=== PATIENT | female | born 1955 | race Caucasian/White ===

== ENCOUNTER 2018-01-20 10:07 | Inpatient (IN) ==
[2018-01-20] MEDS ORDERED: LIDOCAINE 1% 20 ML VIAL SQ ONE (10:08)
[2018-01-20] MEDS ORDERED: IOPAMIDOL 100 ML BOTTLE IV ONE (10:08)
[2018-01-20] MEDS: METOPROLOL TARTRATE 5 MG/5 ML VIAL IV SCH ×3 (10:43→11:15)
--- NOTE | 2018-01-20 11:33 | XRay Report ---
HISTORY: ITS.REASON: Chest Pain and atrial fibrillation FINDINGS: There is moderate pleural and parenchymal scarring in the mid and lower thorax and left side following a prior thoracotomy. This was seen on recent chest CT done on 12/12/17. There are moderate generalized increased interstitial lung markings bilaterally which have developed heart is partially obscured by the scar tissue in the left thorax but does not appear to be grossly enlarged. There are small bilateral pleural effusions. IMPRESSION: New onset generalized interstitial lung disease. This could be due to congestive heart failure or a widespread inflammatory process such as pneumonia. Stable pleural parenchymal scarring in the left chest following prior thoracotomy Interpreted and Authenticated by: Dale Skaggs 01/20/18
[2018-01-20] MEDS ORDERED: DILTIAZEM 25 MG/5 ML VIAL IV ONE (11:35)
[2018-01-20] MEDS ORDERED: DILTIAZEM 125 MG in DEXTROSE 5% IN WATER 100 ML IV ONE (11:36)
[2018-01-20 14:21] LABS: Basophils # (Auto) 0 K/mcL (0.0-0.3); Basophils % (Auto) 0.5 % (0.0-2.0); Eosinophils # (Auto) 0 K/mcL (0.0-0.7); Eosinophils % (Auto) 0.8 % (0.0-7.0); Granulocytes % (Auto) 66.4 % (38.0-78.0); Lymphocytes # (Auto) 1.1 K/mcL (1.5-4.8); Lymphocytes % (Auto) 20.3 % (15.5-49.0); Mean Cell Volume 93.5 fL (80.0-100.0); Mean Corpuscular HGB Conc 33.6 g/dL (31.0-36.0); Mean Corpuscular Hemoglobin 31.4 pg (26.0-34.0); Monocytes # (Auto) 0.7 K/mcL (0.1-0.9); Platelet Count 206 K/mcL (140-440); RBC 4.53 M/mcL (4.00-5.20); Red Cell Distribution Width 15.3 % (11.5-14.5)
[2018-01-20 14:24] LABS: ALT/SGPT 69 U/l (0-40); Albumin 4.1 gm/dL (3.2-5.2); Albumin/Globulin Ratio 1.6 (1.0-2.3); Alkaline Phosphatase 92 U/L (39-117); Blood Urea Nitrogen 10 mg/dl (8-23); Creatine Kinase 120 IU/L (24-170); Creatine Kinase MB 2.7 ng/ml (0-2.9); Myoglobin 43 ng/ml (25-58)
--- NOTE | 2018-01-20 14:40 | Cat Scan Report ---
CLINICAL INFORMATION: : elevated D-dimer, new a fib with RVR, cough , prior history of [sarcoma COMPARISON: 12/12/17 TECHNIQUE: Axial images obtained through the chest. intravenous contrast administration was administered, and scanning was performed during pulmonary arterial phase. Sagittally and coronally reformatted images were obtained. MIP reformatted images. Radiation exposure was limited using dose reduction technology FINDINGS: The pulmonary arteries are normal with no intraluminal filling defects. The aorta is normal in caliber with no aneurysm or dissection. There are scattered plaques in the aortic arch. The heart is mildly enlarged. Minimal amount of plaque formation is seen in the proximal left anterior descending coronary artery. There is no pericardial effusion. Patient has had prior left-sided thoracoplasty performed. Several of the left anterior ribs have been removed and there is mesh at the site where the ribs had been resected. There is scarring in the underlying lung parenchyma. A moderate size layering right-sided pleural effusion and there is a very small layering left-sided effusion. Thickening of the intralobular septa is present bilaterally, most apparent in the lung bases. Patient has developed bands of discoid atelectasis in both lower lobes. No suspicious masses seen in either lung. Central airways appear normal. There are no abnormally enlarged lymph nodes in the mediastinum, mabel or axilla. IMPRESSION: New onset pleural effusions, right greater than left with thickening of the interlobular septa. These findings are most consistent with congestive heart failure. There is stable cardiomegaly Postsurgical changes pneumothorax following a prior thoracoplasty Dr. Aquino was called with results Interpreted and Authenticated by: Dale Skaggs 01/20/18
--- NOTE | 2018-01-20 14:53 | Emergency Department Note ---
Arrhythmia/Palpitations HPI - General Chief Complaint: Arrhythmia/Palpitations Stated Complaint: A-fib, sent from . Time Seen by Provider: 01/20/18 10:33 Source: patient Mode of arrival: ambulatory Limitations: no limitations - History of Present Illness HPI Narrative: 62-year-old female comes in for wheezing and cough for the last 3 days. Additionally she notes a history of intermittent palpitations going on for the last year. She is somewhat high risk as she has had sarcoma as well as 2 episodes of breast cancer. Anyways she went to [facility] with a found she was in A. fib with RVR so they sent her to the ER. Denies fever chills nausea vomiting diarrhea. Notes chronic swelling to the left arm secondary to lymph node dissection - Related Data Home Medications Medication Instructions Recorded Confirmed Liothyronine Sodium 5 mcg PO BID 01/20/18 01/20/18 levothyroxine 137 mcg capsule 137 mcg PO QDAY 01/20/18 01/20/18 Allergies Allergy/AdvReac Type Severity Reaction Status Date / Time meperidine [From Demerol] Allergy Intermediate Hives Verified 01/20/18 09:17 Penicillins Allergy Intermediate Hives Verified 01/20/18 09:17 Review of Systems All systems ED: reviewed and negative except as stated. Past Medical History - Past Medical History Attestation: Yes: The following information was validated with the patient. Medical history: Reports: hypothyroidism, other (Celiac) Psychiatric history: Reports: anxiety Surgical history ED: Reports: other (Mastectomy) - Social History smoking status: Former smoker Physical Exam Normocephalic atraumatic. Conjunctive are clear sclerae nonicteric. No nasal discharge or congestion. Oropharynx pink moist. Posterior pharynx clear. Neck is supple without lymphadenopathy thyromegaly. No carotid bruit. Heart is irregularly irregular rhythm, tachycardic. Unable to hear a murmur. Lungs are clear to auscultation bilaterally without wheezes rales rhonchi or respiratory distress. Abdomen soft nontender nondistended. Chest wall shows mastectomy scars. Left arm chronic lymphedema status post lymph node dissection from mastectomy. No pedal edema. +2 radial pulse. Alert oriented able answer questions appropriately. Limitations: no limitations Course Vital Signs Pulse Rate 135 H 01/20/18 10:08 Respiratory Rate 18 01/20/18 10:08 Blood Pressure 125/89 01/20/18 10:08 Pulse Oximetry (%) 95 01/20/18 10:08 Temperature 98.2 F 01/21/18 07:36 Pulse Rate 75 01/21/18 07:36 Respiratory Rate 14 01/21/18 07:36 Blood Pressure 125/82 01/21/18 07:36 Pulse Oximetry (%) 94 01/21/18 06:57 Arrhythmia/Palpitations - Medical Records Medical records reviewed: Yes I reviewed the patient's medical records. - Lab Data Lab results reviewed: Yes I reviewed the patient's lab results. Result diagrams: 01/21/18 04:00 01/21/18 04:00 Lab Results 01/20/18 01/20/18 01/20/18 Range/Units 10:24 10:24 10:24 WBC Cancelled RBC Cancelled Hgb Cancelled Hct Cancelled MCV Cancelled MCH Cancelled MCHC Cancelled RDW Cancelled Plt Count Cancelled MPV Cancelled Gran % Cancelled Lymph % (Auto) Cancelled [place] % (Auto) Cancelled Eos % (Auto) Cancelled Baso % (Auto) Cancelled Gran # Cancelled Lymph # (Auto) Cancelled [place] # (Auto) Cancelled Eos # (Auto) Cancelled Baso # (Auto) Cancelled Differential Comment Cancelled PT (11.9-14.5) sec INR (0.9-1.1) D-Dimer (0.00-0.40) ug/ml Sodium Cancelled Potassium Cancelled Chloride Cancelled Carbon Dioxide Cancelled Anion Gap Cancelled BUN Cancelled Creatinine Cancelled GFR Calculation Cancelled BUN/Creatinine Ratio Cancelled Glucose Cancelled Calcium Cancelled Magnesium (1.6-2.5) mg/dL Total Bilirubin Cancelled AST Cancelled ALT Cancelled Alkaline Phosphatase Cancelled Total Creatine Kinase Cancelled CK-MB (CK-2) Cancelled Myoglobin Cancelled Troponin T Cancelled Total Protein Cancelled Albumin Cancelled Globulin Cancelled Albumin/Globulin Ratio Cancelled TSH (0.27-5.01) uIU/ml Free T4 (0.7-1.7) ng/dl Fluid pH Fluid Total Protein gm/dL Fluid LDH U/L Fluid Cholesterol mg/dL Fluid Triglycerides mg/dL Pleural Fluid Source Pleural Color Pleural Appearance Pleural RBC /cumm Pleural Tot Cell Ct Pleural Nuc Cells /cumm Pleural Neutrophils % Pleural Lymphocytes % Pleural Plasma Cells Pleural Macrophages % Pleural Mesothelial % Pleural Diff Comment Pleural Glucose mg/dL Pleural Amylase U/L 01/20/18 01/20/18 01/20/18 Range/Units 10:24 10:24 10:24 WBC 5.6 RBC 4.53 Hgb 14.2 Hct 42.4 MCV 93.5 MCH 31.4 MCHC 33.6 RDW 15.3 H Plt Count 206 MPV 10.6 H Gran % 66.4 Lymph % (Auto) 20.3 [place] % (Auto) 12.0 Eos % (Auto) 0.8 Baso % (Auto) 0.5 Gran # 3.7 Lymph # (Auto) 1.1 L [place] # (Auto) 0.7 Eos # (Auto) 0 Baso # (Auto) 0 Differential Comment PT (11.9-14.5) sec INR (0.9-1.1) D-Dimer (0.00-0.40) ug/ml Sodium 141 Potassium 4.1 Chloride 105 Carbon Dioxide 23 Anion Gap 13.0 BUN 10 Creatinine 0.7 GFR Calculation 94 BUN/Creatinine Ratio Glucose 125 H Calcium 9.4 Magnesium (1.6-2.5) mg/dL Total Bilirubin 1.1 H AST 54 H ALT 69 H Alkaline Phosphatase 92 Total Creatine Kinase 120 CK-MB (CK-2) 2.7 Myoglobin 43 Troponin T < 0.01 Total Protein 6.7 Albumin 4.1 Globulin 2.6 Albumin/Globulin Ratio 1.6 TSH (0.27-5.01) uIU/ml Free T4 (0.7-1.7) ng/dl Fluid pH Fluid Total Protein gm/dL Fluid LDH U/L Fluid Cholesterol mg/dL Fluid Triglycerides mg/dL Pleural Fluid Source Pleural Color Pleural Appearance Pleural RBC /cumm Pleural Tot Cell Ct Pleural Nuc Cells /cumm Pleural Neutrophils % Pleural Lymphocytes % Pleural Plasma Cells Pleural Macrophages % Pleural Mesothelial % Pleural Diff Comment Pleural Glucose mg/dL Pleural Amylase U/L 01/20/18 01/20/18 01/20/18 Range/Units 10:33 10:34 15:46 WBC RBC Hgb Hct MCV MCH MCHC RDW Plt Count MPV Gran % Lymph % (Auto) [place] % (Auto) Eos % (Auto) Baso % (Auto) Gran # Lymph # (Auto) [place] # (Auto) Eos # (Auto) Baso # (Auto) Differential Comment PT 13.3 (11.9-14.5) sec INR 1.0 (0.9-1.1) D-Dimer 0.79 H (0.00-0.40) ug/ml Sodium Potassium Chloride Carbon Dioxide Anion Gap BUN Creatinine GFR Calculation BUN/Creatinine Ratio Glucose Calcium Magnesium 2.1 (1.6-2.5) mg/dL Total Bilirubin AST ALT Alkaline Phosphatase Total Creatine Kinase CK-MB (CK-2) Myoglobin Troponin T Total Protein Albumin Globulin Albumin/Globulin Ratio TSH 0.71 (0.27-5.01) uIU/ml Free T4 1.41 (0.7-1.7) ng/dl Fluid pH 7.53 Fluid Total Protein gm/dL Fluid LDH U/L Fluid Cholesterol 27 mg/dL Fluid Triglycerides mg/dL Pleural Fluid Source Pleural Pleural Color Yellow Pleural Appearance Hazy Pleural RBC < 00096 /cumm Pleural Tot Cell Ct 100 Pleural Nuc Cells 779 /cumm Pleural Neutrophils 2 % Pleural Lymphocytes 73 % Pleural Plasma Cells Not Reportable Pleural Macrophages 20 % Pleural Mesothelial 5 % Pleural Diff Comment Not Reportable Pleural Glucose 121 mg/dL Pleural Amylase 35 U/L 01/20/18 Range/Units 15:47 WBC RBC Hgb Hct MCV MCH MCHC RDW Plt Count MPV Gran % Lymph % (Auto) [place] % (Auto) Eos % (Auto) Baso % (Auto) Gran # Lymph # (Auto) [place] # (Auto) Eos # (Auto) Baso # (Auto) Differential Comment PT (11.9-14.5) sec INR (0.9-1.1) D-Dimer (0.00-0.40) ug/ml Sodium Potassium Chloride Carbon Dioxide Anion Gap BUN Creatinine GFR Calculation BUN/Creatinine Ratio Glucose Calcium Magnesium (1.6-2.5) mg/dL Total Bilirubin AST ALT Alkaline Phosphatase Total Creatine Kinase CK-MB (CK-2) Myoglobin Troponin T Total Protein Albumin Globulin Albumin/Globulin Ratio TSH (0.27-5.01) uIU/ml Free T4 (0.7-1.7) ng/dl Fluid pH Fluid Total Protein 2.1 gm/dL Fluid LDH 69 U/L Fluid Cholesterol mg/dL Fluid Triglycerides 12 mg/dL Pleural Fluid Source Pleural Color Pleural Appearance Pleural RBC /cumm Pleural Tot Cell Ct Pleural Nuc Cells /cumm Pleural Neutrophils % Pleural Lymphocytes % Pleural Plasma Cells Pleural Macrophages % Pleural Mesothelial % Pleural Diff Comment Pleural Glucose mg/dL Pleural Amylase U/L - Radiology Data Radiology results reviewed: Yes I reviewed the patient's radiology results. Chest x-ray showed interstitial lung disease with scarring versus infiltrate left lower lobe CTA is then ordered of the chest with the following report from Dr. Skaggs: IMPRESSION: New onset pleural effusions, right greater than left with thickening of the interlobular septa. These findings are most consistent with congestive heart failure. There is stable cardiomegaly Postsurgical changes pneumothorax following a prior thoracoplasty Thoracentesis was then done of the pleural effusion-see report of that-they took off 470 mL of fluid - EKG Data EKG attestation: Yes I reviewed and interpreted this EKG. EKG results narrative: EKG initially shows a rate of 134 atrial fibrillation with left ventricular hypertrophy as well as flattening of the T-wave in V5 and V6 A second EKG was done after she spontaneously converted to sinus rhythm after getting on the diltiazem which again showed no flattening of the T waves but otherwise is much improved Disposition Pt seen by WIRE WRAPPING MACHINE OPERATOR/PA only: No Clinical Impression: Atrial fibrillation with rapid ventricular response, Pleural effusion CHF (congestive heart failure) Qualifiers: Heart failure type: unspecified Heart failure chronicity: acute Qualified Code( s): I50.9 - Heart failure, unspecified Summary: We initially tried to treat her A. fib with RVR with metoprolol 3 doses which did not help. Cardizem drip helped her spontaneously convert to sinus rhythm. Workup showed pleural effusion. Because of the pleural effusion and requiring the IV drip did recommend hospital admission. Dr. Herrera agreed to accept patient please see his notes Disposition: Xfer As Inpt ([facility]) Condition: Fair
[2018-01-20 14:58] LABS: Free T4 (Free Thyroxine) 1.41 ng/dl (0.7-1.7)
--- NOTE | 2018-01-20 16:01 | XRay Report ---
HISTORY: : POST THORA FINDINGS: There is no pneumothorax following the preceding right-sided thoracentesis. There is blunting of the right costophrenic sulcus due to a residual tiny pleural effusion. Most of the fluid has been drained and the right lower lobe has partially reexpanded. Multiple curly B lines are present in the periphery of the right lower lobe. Heart is mildly enlarged. There is pleural and parenchymal scarring in the left thorax. There are small left-sided pleural effusion is unchanged. IMPRESSION: No complication following right-sided thoracentesis Congestive heart failure with interstitial pulmonary edema Interpreted and Authenticated by: Dale Skaggs 01/20/18
[2018-01-20] MEDS ORDERED: ONDANSETRON 4 MG/2 ML VIAL IV PRN (16:11)
[2018-01-20] MEDS ORDERED: NALOXONE HCL 0.4 MG/ML VIAL IV PRN (16:11)
[2018-01-20] MEDS ORDERED: ACETAMINOPHEN 325 MG TABLET PO PRN (16:11)
[2018-01-20] MEDS ORDERED: oxyCODONE/APAP 5/325MG TABLET PO PRN (16:11)
--- NOTE | 2018-01-20 16:17 | Ultrasound Report ---
CLINICAL INFORMATION: Right-sided pleural effusion TECHNIQUE: The procedure and risks were explained the patient consented. The skin over the right side of the back was prepped with ChloraPrep and then anesthetized with 1% lidocaine. Using ultrasound guidance a Yueh needle was inserted into the pleural space. 470 cc of brittney-colored fluid was removed and sent to laboratory for analysis. Most all of the visualized fluid was drained. She tolerated the procedure well without complication. IMPRESSION: Successful right-sided thoracentesis removing 470 cc of fluid Interpreted and Authenticated by: Dale Skaggs 01/20/18
[2018-01-20] MEDS ORDERED: FUROSEMIDE 40 MG/4 ML VIAL IV ONE (16:30)
--- NOTE | 2018-01-20 16:33 | Internal Med History&Physical ---
Medical - H&P: HPI Patient information: Note initiated : 01/20/18 at 4:29 pm Service Date, if different from initiated Date: [] Patient: Rabia Godinez a 62 y/o F admitted on 01/20/18 for A-fib, sent from .. Chief Complaint: [] History of present illness: Ms. Godinez is a 62 year old F with history of left-sided breast cancer in the past, status post surgery and radiation. The patient notes that she has not been feeling well for the last 1 year intermittent palpitations which was attributed to anxiety after her mother . The patient has not been feeling well for the last 3-4 days she complains of cough which is wet but no sputum production, wheezing when she lies down flat, decreased endurance some chills palpitations fatigue. The patient was concerned that she has a pneumonia and try to establish with a new physician however that was taking time she therefore [facility]. In the [facility] it was noted that she has an elevated heart rate and she was sent to the emergency room for further evaluation. In the emergency room here the patient was noted to have tachycardia, EKG showed atrial fibrillation with rapid ventricular rate, chest x-ray showed congestive heart failure. Patient's lab work showed normal WBC count and hemoglobin, normal INR at 1.0 mildly elevated d-dimer at 0.79 TSH 0.71. Left lites were stable glucose 125 troponin was 0.01. Patient was initially given IV metoprolol with no response and later on started on a Cardizem drip which converted the patient back to sinus. Chest x-ray showed effusion on the left side CT angios of the chest was done negative for pulmonary embolism no pneumonia but did show right-sided pleural effusion. The patient underwent thoracocentesis by radiology results of which are pending. Given that the patient is on a Cardizem drip, has new onset congestive heart failure as well as atrial fibrillation which may or may not be new she was admitted to the telemetry floor for further management. The patient notes that she was fairly active in the past, exercising regularly until August when she moved to the [place], she did notice that her endurance was lower now after she moved here. The patient denies any chest pain, has intermittent palpitations, denies any swelling of the legs. 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 Surgical history: virgen mastectomy Pertinent family history: adopted Social history: smoked 3-4 yrs when was 20yrs 1-2 glasses wine a week uses CBD for cancer? no recreational drugs. Medical - H&P: Meds Home Medications Medication Instructions Recorded Confirmed Type levothyroxine 137 mcg capsule 137 mcg PO QDAY 01/20/18 01/20/18 History Allergies Allergy/AdvReac Type Severity Reaction Status Date / Time meperidine [From Demerol] Allergy Intermediate Hives Verified 01/20/18 09:17 Penicillins Allergy Intermediate Hives Verified 01/20/18 09:17 Medical - H&P: Exam - Constitutional Vitals: Pulse Resp BP Pulse Ox 77 21 108/77 93 01/20/18 14:46 01/20/18 14:46 01/20/18 14:46 01/20/18 14:46 Exam: GENERAL: The patient is a well-developed, well-nourished in no apparent distress. Is alert and oriented x3. VITAL SIGNS: Reviewed and as noted elsewhere. HEENT: Head is normocephalic and atraumatic. Extraocular muscles are intact. Pupils are equal, round, and reactive to light. Nares appeared normal. Mouth appears any without lesions. Mucous membranes are moist. NECK: Normal to inspection, Supple, No lymphadenopathy or thyromegaly. LUNGS: Air entry equal on both sides, no wheezing, bibasilar crackles, rt > left , spekaing full sentences. HEART: Regular rate and rhythm normal, S1 and S2 heard, no Gallop, S3 or Rub Noted, No Gross murmur heard. ABDOMEN: Soft, nontender, and nondistended. Positive bowel sounds. No hepatosplenomegaly was noted. EXTREMITIES: No cyanosis, clubbing, rash, lesions or edema. NEUROLOGIC: Cranial nerves II through XII are grossly intact. Motor and Sensory System Grossly Intact PSYCHIATRIC: Normal affect, Normal Mood. Appropriate Behavior. SKIN: No ulceration or wounds noted, No jaundice, No rash noted. Medical - H&P: Reslt - Labs CBC & Chem 7: 01/20/18 10:24 01/20/18 10:24 Labs: Short CBC 01/20/18 01/20/18 Range/Units 10:24 10:24 WBC Cancelled 5.6 Hgb Cancelled 14.2 Hct Cancelled 42.4 Plt Count Cancelled 206 BMP 01/20/18 01/20/18 10:24 10:24 Sodium Cancelled 141 Potassium Cancelled 4.1 Chloride Cancelled 105 Carbon Dioxide Cancelled 23 BUN Cancelled 10 Creatinine Cancelled 0.7 Glucose Cancelled 125 H Calcium Cancelled 9.4 Cardiac Enzymes 01/20/18 01/20/18 01/20/18 Range/Units 10:24 10:24 10:24 Total Creatine Kinase Cancelled 120 CK-MB (CK-2) Cancelled 2.7 Troponin T Cancelled 01/20/18 Range/Units 10:24 Total Creatine Kinase CK-MB (CK-2) Troponin T < 0.01 Liver Function 01/20/18 01/20/18 Range/Units 10:24 10:24 Total Bilirubin Cancelled 1.1 H AST Cancelled 54 H ALT Cancelled 69 H Alkaline Phosphatase Cancelled 92 Albumin Cancelled 4.1 Medical - H&P: A/P - Narrative A/P Narrative: A/P Atrial fibrillation with RVR new onset Congestive heart failuire, new onset Hypothyroidism Plan Admit to inpt status IV lasix, Po metoprolol, wean off cardizem drip monitor I/O get echo will need outpatient stress test and cardiology eval need for ASA or anticoagulation to be determined after echo done. DVT hep sq Diet cardiac, low salt Full c ode
[2018-01-20] MEDS ORDERED: METOPROLOL TARTRATE 25 MG TABLET PO ONE (16:45)
[2018-01-20 17:05] LABS: pH,Body Fluid 7.53
[2018-01-20 17:12] LABS: Amylase,Pleural Fluid 35 U/L; Glucose,Pleural Fluid 121 mg/dL
[2018-01-20 17:21] LABS: Appearance,Pleural Fluid HAZY; Color,Pleural Fluid YELLOW; Nucleated Cells,Pleural Fld 779 /cumm; RBC,Pleural Fluid < 50000 /cumm
[2018-01-20 17:22] LABS: Cholesterol,Body Fluid 27 mg/dL
[2018-01-20 17:36] LABS: Total Protein,Body Fluid 2.1 gm/dL
[2018-01-20 17:54] LABS: Lymphocytes,Pleural Fluid 73 %; Neutrophils,Pleural Fluid 2 %
[2018-01-20 19:50] LABS: Appearance,Urine CLEAR; Bilirubin,Urine NEG (NEG); Color,Urine COLORLESS; Glucose,Urine (UA) NEGATIVE (NEG); Leukocyte Esterase,Urine NEG /uL (NEG); Protein,Urine NEG (NEG); Specific Gravity,Urine 1.016 (1.000-1.035); Urine Blood NEG mg/dL (<0.03); Urobilinogen,Urine NEG (NEG)
[2018-01-20] MEDS: METOPROLOL TARTRATE 25 MG TABLET PO SCH (20:34)
[2018-01-20] MEDS: HEPARIN 5,000 UNIT/ML VIAL SQ SCH (20:34)
[2018-01-20] MEDS: 0.9 % SODIUM CHLORIDE 10 ML SYRINGE IV SCH (20:35)
[2018-01-21 05:18] LABS: Basophils # (Auto) 0 K/mcL (0.0-0.3); Basophils % (Auto) 0.9 % (0.0-2.0); Eosinophils # (Auto) 0.1 K/mcL (0.0-0.7); Eosinophils % (Auto) 2.4 % (0.0-7.0); Granulocytes % (Auto) 58.5 % (38.0-78.0); Lymphocytes # (Auto) 1.3 K/mcL (1.5-4.8); Lymphocytes % (Auto) 28.9 % (15.5-49.0); Mean Corpuscular HGB Conc 34.1 g/dL (31.0-36.0); Mean Corpuscular Hemoglobin 31.8 pg (26.0-34.0); Monocytes # (Auto) 0.4 K/mcL (0.1-0.9); Monocytes % (Auto) 9.3 % (1.0-12.0); Platelet Count 188 K/mcL (140-440); Red Cell Distribution Width 14.6 % (11.5-14.5)
[2018-01-21 05:39] LABS: ALT/SGPT 56 U/l (0-40); Albumin 3.6 gm/dL (3.2-5.2); Albumin/Globulin Ratio 1.5 (1.0-2.3); Alkaline Phosphatase 83 U/L (39-117); Bilirubin,Direct < 0.2 mg/dL (0.0-0.3); Blood Urea Nitrogen 13 mg/dl (8-23); Gamma Glutamyl Transpeptidase 26 U/L (5-36); Uric Acid 4.7 mg/dL (2.5-8.0)
[2018-01-21] MEDS: 0.9 % SODIUM CHLORIDE 10 ML SYRINGE IV SCH ×3 (06:06→20:37)
--- NOTE | 2018-01-21 09:26 | Internal Med Progress Note ---
Medical - PN: Subj Patient information: Note initiated : 01/21/18 at 9:24 am Service Date, if different from initiated Date: [] Patient: Rabia Godinez a 62 y/o F admitted on 01/20/18 for A-fib, sent from .. Chief Complaint: [] Interval history: Ms. Godinez is a 62 year old F with history of left-sided breast cancer in the past, status post surgery and radiation. The patient notes that she has not been feeling well for the last 1 year intermittent palpitations which was attributed to anxiety after her mother . The patient has not been feeling well for the last 3-4 days she complains of cough which is wet but no sputum production, wheezing when she lies down flat, decreased endurance some chills palpitations fatigue. The patient was concerned that she has a pneumonia and try to establish with a new physician however that was taking time she therefore went to [facility] for evaluation. In the minor care it was noted that she has an elevated heart rate and she was sent to the emergency room for further evaluation. In the emergency room here the patient was noted to have tachycardia, EKG showed atrial fibrillation with rapid ventricular rate, chest x-ray showed congestive heart failure. Patient's lab work showed normal WBC count and hemoglobin, normal INR at 1.0 mildly elevated d-dimer at 0.79 TSH 0.71. Left lites were stable glucose 125 troponin was 0.01. Patient was initially given IV metoprolol with no response and later on started on a Cardizem drip which converted the patient back to sinus. Chest x-ray showed effusion on the left side CT angios of the chest was done negative for pulmonary embolism no pneumonia but did show right-sided pleural effusion. The patient underwent thoracocentesis by radiology results of which are pending. Given that the patient is on a Cardizem drip, has new onset congestive heart failure as well as atrial fibrillation which may or may not be new she was admitted to the telemetry floor for further management. The patient notes that she was fairly active in the past, exercising regularly until August when she moved to the [place], she did notice that her endurance was lower now after she moved here. The patient denies any chest pain, has intermittent palpitations, denies any swelling of the legs. 01/21 Patient seen examined, no acute overnight issues remains in sinus rhytm echo pending On IV lasix for chf, will need further risk stratification for afib, will ikely need anticoagulation. Pt denies any acute complaints. Pertinent ROS: Denies headache, dizziness Denies chest pain, palpitations Denies cough or shortness of breath Denies abdominal pain, nausea or vomiting. - Constitutional Vitals: Vital Signs Temp Pulse Resp BP Pulse Ox 98.2 F 75 14 125/82 94 01/21/18 07:36 01/21/18 07:36 01/21/18 07:36 01/21/18 07:36 01/21/18 06:57 Period Temp Pulse Resp BP Sys/Werner Pulse Ox Last 24 Hr 97.3 F-98.9 F 42-141 14-35 90-151/55-100 89-99 Intake and Output 01/20/18 01/21/18 01/21/18 21:59 05:59 13:59 Intake Total 674 / 674 400 / 400 Output Total 1400 / 1400 400 / 400 400 / 400 Balance -726 / -726 0 / 0 -400 / -400 Weight 143 lb 4.8 oz Intake & Output: Intake & Output 01/20/18 01/21/18 01/21/18 21:59 05:59 13:59 Intake Total 674 / 674 400 / 400 Output Total 1400 / 1400 400 / 400 400 / 400 Balance -726 / -726 0 / 0 -400 / -400 Weight 143 lb 4.8 oz Intake: IV Cardizem 125 mg In Dextrose 5% in Water 100 ml @ 5 MG/HR 5 mls /hr IV Q12H ONE Rx#:[id number] Oral 660 / 660 400 / 400 Output: Void Amount 1400 / 1400 400 / 400 400 / 400 # of times incontinent of urine 0 / 0 Other: Meal Dinner Percent of Meal Consumed 75% Feeding Ability Independent # Voids 1 Exam: Constitutional; Afebrile, cooperative, alert, not in distress. Eyes- No icterus, , No periorbital swelling Ears- Ext ear normal, hearing normal to conversation. Neck- Midline trachea, supple Respiratory system: Air Entry equal on both sides, No crackles or wheezing, no rhonchi. CVS- Rate rhythm regular, S1,S2 heard, no gallop, no rub. Abdomen- Soft nontender abdomen, no organomegaly, no tenderness, no guarding or rigidity, INTERPRETIVE NATURALIST- AOOx3, moving all extremities, no gross focal deficit noted. Medical - PN: Obj Da - Labs CBC & Chem 7: 01/21/18 04:00 01/21/18 04:00 Labs: Abnormal Lab Results 01/21/18 01/21/18 01/20/18 04:00 04:00 18:52 RDW 14.6 H MPV Lymph # (Auto) 1.3 L D-Dimer Glucose Total Bilirubin 1.3 H AST 39 H ALT 56 H Lactate Dehydrogenase 399 H 01/20/18 01/20/18 01/20/18 10:34 10:24 10:24 RDW 15.3 H MPV 10.6 H Lymph # (Auto) 1.1 L D-Dimer 0.79 H Glucose 125 H Total Bilirubin 1.1 H AST 54 H ALT 69 H Lactate Dehydrogenase Meds: Medications Acetaminophen (Tylenol) 650 mg PO Q6HP PRN PRN Reason: PAIN/FEVER > 101 Furosemide (Lasix) 40 mg IV DAILY [facility] Heparin Sodium (Porcine) (Heparin) 5,000 unit SQ Q12 [facility] Last Admin: 01/20/18 20:34 Dose: 5,000 unit Diltiazem HCl 125 mg/ Dextrose 125 mls @ 5 mls/hr IV Q12H ONE; Protocol Stop: 01/21/18 12:35 Last Titration: 01/20/18 18:30 Dose: 0 mg/hr, 0 mls/hr Levothyroxine Sodium (Synthroid) 137 mcg PO QAMAC [facility] Liothyronine Sodium (Cytomel) 5 mcg PO BID [facility] Metoprolol Tartrate (Lopressor) 25 mg PO BID [facility] Last Admin: 01/20/18 20:34 Dose: Not Given Naloxone HCl (Narcan) 0.1 mg IV Q2MIN PRN PRN Reason: Opiate Reversal Ondansetron HCl (Zofran) 4 mg IV Q4HP PRN PRN Reason: Nausea And Vomiting Oxycodone/Acetaminophen (Percocet 5-325 Mg) 1 tab PO Q4HP PRN PRN Reason: PAIN LEVEL 3-6 Sodium Chloride (Saline Flush) 10 ml IV Q8 [facility] Last Admin: 01/21/18 06:06 Dose: 10 ml Medical - PN: A/P - Time Spent With Patient Total time spent is greater than 50% in coordination of care (as documented) at patient's floor/unit and/or counseling patient: - Narrative A/P Narrative: A/P Atrial fibrillation with RVR new onset Congestive heart failuire, new onset Hypothyroidism Plan continue to monitor on tele, Po metoprolol 25mg bid, in sinus rhythm tsh wnl echo ending IV lasix for CHF. will need anticoagulation likely at d/c, with outpatient cardiology follow up. continue levothyroxine. DVT hep sq Diet cardiac, low salt Full c ode Medical - PN: Qual - Stroke Symptom Onset Unknown: No - VTE Deep Vein Thrombosis/Pulmonary Embolism Present on Admission: No
[2018-01-21] MEDS: LEVOTHYROXINE 100 MCG TABLET PO SCH (09:45)
[2018-01-21] MEDS: HEPARIN 5,000 UNIT/ML VIAL SQ SCH ×2 (09:46→20:37)
[2018-01-21] MEDS: FUROSEMIDE 40 MG/4 ML VIAL IV SCH (09:46)
[2018-01-21] MEDS: LIOTHYRONINE 5 MCG TABLET PO SCH ×2 (09:46→20:37)
[2018-01-21] MEDS: METOPROLOL TARTRATE 25 MG TABLET PO SCH ×2 (09:47→20:37)
[2018-01-21] MEDS ORDERED: METOPROLOL TARTRATE 25 MG TABLET PO ONE (12:13)
[2018-01-21] MEDS ORDERED: METOPROLOL TARTRATE 25 MG TABLET ONE (12:21)
[2018-01-21] MEDS ORDERED: METOPROLOL TARTRATE 5 MG/5 ML VIAL IV ONE (12:23)
[2018-01-21] MEDS: METOPROLOL TARTRATE 5 MG/5 ML VIAL IV SCH ×3 (12:24→14:01)
[2018-01-22] MEDS: 0.9 % SODIUM CHLORIDE 10 ML SYRINGE IV SCH (05:22)
[2018-01-22 05:35] LABS: Basophils # (Auto) 0 K/mcL (0.0-0.3); Basophils % (Auto) 0.7 % (0.0-2.0); Eosinophils # (Auto) 0.1 K/mcL (0.0-0.7); Eosinophils % (Auto) 2.6 % (0.0-7.0); Granulocytes % (Auto) 53.2 % (38.0-78.0); Lymphocytes # (Auto) 1.5 K/mcL (1.5-4.8); Lymphocytes % (Auto) 29.6 % (15.5-49.0); Mean Cell Volume 94.4 fL (80.0-100.0); Mean Corpuscular HGB Conc 33.4 g/dL (31.0-36.0); Mean Corpuscular Hemoglobin 31.5 pg (26.0-34.0); Monocytes # (Auto) 0.7 K/mcL (0.1-0.9); Monocytes % (Auto) 13.9 % (1.0-12.0); Platelet Count 183 K/mcL (140-440); RBC 4.38 M/mcL (4.00-5.20); Red Cell Distribution Width 14.6 % (11.5-14.5)
[2018-01-22 05:53] LABS: ALT/SGPT 49 U/l (0-40); Albumin 3.7 gm/dL (3.2-5.2); Albumin/Globulin Ratio 1.5 (1.0-2.3); Alkaline Phosphatase 81 U/L (39-117); Bilirubin,Direct < 0.2 mg/dL (0.0-0.3); Blood Urea Nitrogen 22 mg/dl (8-23); Gamma Glutamyl Transpeptidase 25 U/L (5-36); Uric Acid 5.7 mg/dL (2.5-8.0)
[2018-01-22] MEDS: LEVOTHYROXINE 100 MCG TABLET PO SCH (06:50)
[2018-01-22] MEDS: HEPARIN 5,000 UNIT/ML VIAL SQ SCH (08:13)
[2018-01-22] MEDS: FUROSEMIDE 40 MG/4 ML VIAL IV SCH (08:13)
[2018-01-22] MEDS: LIOTHYRONINE 5 MCG TABLET PO SCH (08:13)
[2018-01-22] MEDS: METOPROLOL TARTRATE 25 MG TABLET PO SCH (08:14)
--- NOTE | 2018-01-22 11:28 | Discharge Summary ---
Medical - DS: Prov Patient information: Note initiated : 01/22/18 at 11:11 am Service Date, if different from initiated Date: [] Patient: Rabia Godinez 62 y/o F admitted on 01/20/18 for Atrial Fibrillation with RVR, CHF. Chief Complaint: [] Date of admission: 01/20/18 16:10 Discharge date: 01/22/18 Admitting clinician: Newton Herrera Consults: 01/20/18 12:27 Consult to Physician [CONS] Stat Comment: Consulting Provider: Newton Herrera Reason For Exam: Physician to Consult Discharging clinician: Newton Herrera Medical - DS: Meds - Discharge Medications Prescriptions: Apixaban [Eliquis] 5 mg PO BID #60 tab Furosemide [Lasix] 20 mg PO DAILY #30 tab Metoprolol Tartrate [Lopressor] 50 mg PO BID #60 tab Active and Home Medications: Home Medications Liothyronine Sodium 5 mcg PO BID 01/20/18 [History Confirmed 01/20/18 Last Taken 01/20/18 08:00] levothyroxine 137 mcg capsule 137 mcg PO QDAY 01/20/18 [History Confirmed Last Taken 01/20/18 08:00] Medical - DS: Hosp Hospital course: Ms. Godinez is a 62 year old F with history of left-sided breast cancer in the past, status post surgery and radiation. The patient notes that she has not been feeling well for the last 1 year intermittent palpitations which was attributed to anxiety after her mother . The patient has not been feeling well for the last 3-4 days she complains of cough which is wet but no sputum production, wheezing when she lies down flat, decreased endurance some chills palpitations fatigue. The patient was concerned that she has a pneumonia and try to establish with a new physician however that was taking time she therefore went to [facility] for evaluation. In the minor care it was noted that she has an elevated heart rate and she was sent to the emergency room for further evaluation. In the emergency room here the patient was noted to have tachycardia, EKG showed atrial fibrillation with rapid ventricular rate, chest x-ray showed congestive heart failure. Patient's lab work showed normal WBC count and hemoglobin, normal INR at 1.0 mildly elevated d-dimer at 0.79 TSH 0.71. Left lites were stable glucose 125 troponin was 0.01. Patient was initially given IV metoprolol with no response and later on started on a Cardizem drip which converted the patient back to sinus. Chest x-ray showed effusion on the left side CT angios of the chest was done negative for pulmonary embolism no pneumonia but did show right-sided pleural effusion. The patient underwent thoracocentesis by radiology results of which are pending. Given that the patient is on a Cardizem drip, has new onset congestive heart failure as well as atrial fibrillation which may or may not be new she was admitted to the telemetry floor for further management. The patient notes that she was fairly active in the past, exercising regularly until August when she moved to the [place], she did notice that her endurance was lower now after she moved here. The patient denies any chest pain, has intermittent palpitations, denies any swelling of the legs. Atrial fibrillation, - noted on ekg, initially needed Cardizem drip, but later switched to oral metoprolol 50mg bid. CHADSvasc 2 score is 2. She is being discharged on oral eliquis 5mg bid. Major risks benefits of the medication discussed, all questions answered. Patient educated to look out for warning signs of bleeding. She is scheduled to see a javascript front end developer as outpatient. would benefit from stress test given h/o radiation in the past. Echo shows Mildly dilated LV, LV thickness on upper end of normal, LV function moderately reduced, global hypokiensis, moderate MR< LA moderately enlarged, pulm pressure 40-50 Right sided pleural effusion/ CHF- s/p thoracocentesis, aspirated transudative fluid per lights criteria, IV lasix used with good response, oral lasix 20mg at discharge. The rest of the stay in the hospital was uneventful. Discharge diagnosis: Atrial Fibrillation, CHF - Time Spent with Patient Total time spent providing and/or coordinating discharge services: Greater than 30 minutes Medical - DS: Exam - Constitutional Vitals: Vital Signs Temp Pulse Resp BP BP Pulse Ox 01/22/18 06:53 97.2 F 65 14 117/70 95 01/22/18 04:09 97.6 F 65 17 107/58 93 01/21/18 23:45 97.3 F 64 16 114/64 93 01/21/18 21:49 98.3 F 134 H 18 116/65 93 01/21/18 20:00 98 F 70 16 115/64 94 01/21/18 16:00 98.4 F 14 132/78 96 01/21/18 12:00 98.4 F 88 18 132/88 94 Intake and Output 01/21/18 01/22/18 01/22/18 21:59 05:59 13:59 Intake Total 300 / 300 500 / 500 Output Total 400 / 400 700 / 700 Balance -100 / -100 -200 / -200 Intake: Oral 300 / 300 500 / 500 Output: Void Amount 400 / 400 700 / 700 Other: Meal Lunch Percent of Meal Consumed 100% Weight 145 lb Additional comments: Constitutional; Afebrile, cooperative, alert, not in distress. Eyes- No icterus, , No periorbital swelling Ears- Ext ear normal, hearing normal to conversation. Neck- Midline trachea, supple Respiratory system: Air Entry equal on both sides, No crackles or wheezing, no rhonchi. CVS- Rate rhythm regular, S1,S2 heard, no gallop, no rub. Abdomen- Soft nontender abdomen, no organomegaly, no tenderness, no guarding or rigidity, DRESSAGE JUDGE- AOOx3, moving all extremities, no gross focal deficit noted. Medical - DS: Data Labs on day of discharge: Labs from last 24 hours 01/22/18 01/22/18 01/21/18 04:19 04:19 04:00 WBC 5.0 RBC 4.38 Hgb 13.8 Hct 41.3 MCV 94.4 MCH 31.5 MCHC 33.4 RDW 14.6 H Plt Count 183 MPV 10.8 H Gran % 53.2 Lymph % (Auto) 29.6 [place] % (Auto) 13.9 H Eos % (Auto) 2.6 Baso % (Auto) 0.7 Gran # 2.6 Lymph # (Auto) 1.5 [place] # (Auto) 0.7 Eos # (Auto) 0.1 Baso # (Auto) 0 Sodium 141 Potassium 3.5 Chloride 100 Carbon Dioxide 28 Anion Gap 13.0 BUN 22 Creatinine 0.7 GFR Calculation 94 Glucose 89 Uric Acid 5.7 Calcium 9.0 Phosphorus 4.0 Magnesium 2.0 Total Bilirubin 1.0 Direct Bilirubin < 0.2 GGT 25 AST 28 ALT 49 H Alkaline Phosphatase 81 Lactate Dehydrogenase 193 Total Protein 6.2 Albumin 3.7 Globulin 2.5 Albumin/Globulin Ratio 1.5 Triglycerides 109 Free T3 pg/mL 2.3 Preliminary micro results at discharge 01/20/18 15:47 Anaerobic Culture - Preliminary Pleural Fluid Medical - DS: A/P - Patient/Caregiver Discharge Instructions Activity: increase activity as tolerated Diet: Cardiac (High Potassium Diet. ) Additional Instructions: Please consume diet rich in potassium, you are being started on lasix (water pill) which can lower potassium from your body. Please start taking eliquis 5mg twice daily, this is a blood thinner, if you notice blood in stools, urine or black color stools, please stop the medication and go to the ER While on this medication avoid the use of Aspirin, alleve, motrin or other NSAID medications. You are also being started on metoprolol 50mg twice daily, for heart rate control. Your javascript front end developer will titrate this medication further. Follow up with javascript front end developer in 1-2 weeks Go to the ER if you noticed persistent palpitations, elevated heart rate, bleeding, fever, chest pain or any other acute concern. - Follow up Plan Follow up with: Sean Dubois [Other] (They will contact you at home after reviewing your hospital stay. If you do not hear from them within the week, please call ) Disposition: Home, Self-Care Prognosis: Fair Rehab Potential: Fair I certify that the patient requires SNF services: No Overall status at discharge: patient is progressing back to baseline Medical - DS: Qual - VTE Deep Vein Thrombosis/Pulmonary Embolism Present on Admission: No
--- NOTE | 2018-01-23 14:24 | Non-GYN Cytology Report ---
NON SOCCER BALL ASSEMBLER SPECIMEN NG DX CATEGORY Negative MICROSCOPIC DIAGNOSIS RIGHT PLEURAL EFFUSION: -- NEGATIVE FOR MALIGNANCY. -- REACTIVE MESOTHELIAL CELLS, LYMPHOCYTES AND MACROPHAGES. (EBD:djf) COMMENT: No malignant cells are identified. 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 Immunohistochemical stains calretinin and CD68 highlight reactive mesothelial cells and macrophages respectively (adequate technical control). BerEp4 and MOC31 are negative to rule out involvement by adenocarcinoma. CD34 is negative and desmin and S100 show non-specific staining. There is no evidence of metastatic disease. MICROSCOPIC DESCRIPTION Cytologic preparations show scattered reactive mesothelial cells, and abundant macrophages highlighted by calretinin and CD68 respectively (adequate technical control). Scattered lymphocytes are also present. Additional immunohistochemical stains with CD34, BerEp4 and MOC31 are negative. S100 and desmin show non-specific staining. (EBD:djf) Some of the tests reported here may not have been cleared or approved by the U.S. Food and Drug Administration (FDA). However, the FDA has determined that such clearance or approval is not necessary. Pursuant to the requirements of CLIA, this laboratory has established and verified the accuracy and precision of all tests, and additional information about these tests is available upon request. All technical controls are adequate. CLINICAL HISTORY Right pleural effusion. EXTERNAL COMMENT ~500 mL orange fluid; 1 thinprep, 1 H/E, 1 Diff Quik, 1 Nascimento Giemsa, 1 cell block Electronically Signed by: Carrie Gonzalez M.D.
== END 2018-01-22 12:29 | disposition home or self-care (01) | DRG 309 ==
LOC: ED 10:07 → ICU 16:00
PROVIDERS: ADMIT Internal Medicine; ATTEND Internal Medicine

== ENCOUNTER 2022-10-21 16:48 | Observation (INO) ==
--- NOTE | 2022-10-21 17:02 | Emergency Department Note ---
HPI General Chief complaint: Anxiety Stated complaint: uncomfortable Time Seen by Provider: 10/21/22 17:01 Source: family Mode of arrival: wheelchair Limitations: altered mental status History of Present Illness HPI Narrative: Narrative: Patient is a 67-year-old female with a complex medical history, but importantly who is being transition to hospice care who presents to the emergency department in route to home from [facility] for medications for comfort care. Patient's children are present and states that on the way home she endorsed feeling more and more uncomfortable and asked if they could stop at the emergency department before arriving home. They state that they were concerned that maybe she wanted to be in the hospital until hospice care was available, but also states that they feel uncomfortable with providing her cares in the state that she is in until hospice care is available in the morning. They state that she has seemed short of breath, and at this point is not co herent. They deny any other concerns at this time. They do state that they would like an admission until tomorrow morning. Related Data Home Medications Medication Instructions Recorded Confirmed levothyroxine 137 mcg capsule 137 mcg PO QDAY 01/20/18 01/20/18 liothyronine 5 mcg tablet 5 mcg PO BID 01/20/18 01/20/18 tramadol 50 mg tablet 1 tab PO QIDP PRN Pain 06/11/22 06/11/22 Previous Rx's Medication Instructions Recorded apixaban 5 mg tablet 5 mg PO BID #60 tabs 01/22/18 furosemide 20 mg tablet 20 mg PO DAILY #30 tabs 01/22/18 metoprolol tartrate 50 mg tablet 50 mg PO BID #60 tabs 01/22/18 ciprofloxacin HCl 500 mg tablet 500 mg PO BID #20 tabs 08/20/19 Allergies Allergy/AdvReac Type Severity Reaction Status Date / Time meperidine [From Demerol] Allergy Intermediate Hives Verified 10/10/22 09:12 Penicillins Allergy Intermediate Hives Verified 10/10/22 09:12 Review of Systems ROS ROS Narrative: Narrative: Limitations: ROS unobtainable due to patients medical condition [facility] Narrative Patient History Narrative: Narrative: Medical/Surgical/Family History All Active Problems (Updated 10/21/22 @ 19:28 by Sekou Go MD) Atrial fibrillation with rapid ventricular response (Acute) CHF (congestive heart failure) (Acute) Pleural effusion (Acute) Sarcoma (Acute) Cellulitis (Acute) COVID-19 (Acute) Acute dyspnea (Acute) Acute UTI (Acute) Acute anemia (Acute) Atrial fibrillation with rapid ventricular response (Acute) Sepsis (Acute) Chest wall sarcoma (Acute) Encounter for end of life care (Acute) Atrial fibrillation (Acute) Racing heart beat (Acute) History of rhabdomyosarcoma (Acute) History of breast cancer (Acute) Anxiety (Acute) Celiac disease (Acute) Hypothyroidism (Acute) Nelly's disease (Acute) Social History Smoking Status: Never smoker Alcohol Intake Frequency: a few times a week Substance Use: does not use Exam Narrative Narrative: Narrative: General Limitations: altered mental status General appearance: Present sleepy; Absent in no apparent distress Head Head: Present atraumatic and normocephalic Eye Eye: Present PERRL; Absent nystagmus ENT ENT: Absent nasal congestion Neck Neck: Present normal inspection and trachea midline Chest Chest: Present normal inspection and symmetric chest wall rise Respiratory Respiratory: Present respiratory distress; Absent accessory muscle use Cardiovascular Cardiovascular: Present regular rate and normal rhythm Adbominal Abdominal: Absent distention Extremities Extremities: Present normal inspection and full ROM Back Back: Present normal inspection and full ROM Neurological Neurological: Absent alert or oriented X3 Skin Skin: Present cool, dry and pallor Course Vital Signs Vital signs: Vital Signs Temperature 97.4 F 10/21/22 16:50 Pulse Rate 72 10/21/22 16:50 Respiratory Rate 20 10/21/22 16:50 Blood Pressure 134/86 10/21/22 16:50 Pulse Oximetry (%) 91 10/21/22 16:50 Oxygen Delivery Method Room Air 10/21/22 16:50 Temperature 97.4 F 10/21/22 16:50 Pulse Rate 104 H 10/21/22 17:31 Respiratory Rate 20 10/21/22 16:50 Blood Pressure 80/55 10/21/22 17:31 Pulse Oximetry (%) 80 L 10/21/22 17:31 Oxygen Delivery Method Room Air 10/21/22 16:50 MDM MDM Narrative Medical decision making narrative: Narrative: Patient is a 67-year-old female who presents to the emergency department for comfort care medications prior to hospice beginning on Friday morning. Patient has received a dose of morphine and a dose of Ativan. Social work has spoken to patient's family, and I have reassessed and spoken to family again, and they again state at this time that they would like to be admitted overnight prior to hospice care starting tomorrow. Patient has been signed out to Dr. Bob. Discharge Plan Patient/Caregiver Discharge Instructions Pt seen by LABEL PRINTER/PA only: No Clinical Impression: Encounter for end of life care Patient Disposition: Still a Patient Follow up with: No,PCP [Primary Care Provider] - Prescriptions: No Action levothyroxine 137 mcg capsule 137 mcg PO QDAY liothyronine 5 MCG tablet 5 mcg PO BID metoprolol tartrate 50 MG tablet 50 mg PO BID Qty: 60 0RF apixaban 5 MG tablet 5 mg PO BID Qty: 60 0RF furosemide 20 MG tablet 20 mg PO DAILY Qty: 30 0RF ciprofloxacin HCl 500 MG tablet 500 mg PO BID Qty: 20 0RF tramadol 50 mg tablet 1 tab PO QIDP PRN (Reason: Pain)
[2022-10-21] MEDS ORDERED: morphine 4 MG/ML VIAL IV ONE (17:13)
[2022-10-21] MEDS ORDERED: LORazepam 2 MG/ML VIAL IV ONE (17:18)
--- NOTE | 2022-10-21 19:28 | Emergency Department Note ---
Course Course Course Narrative: I assumed care of patient at 1900 pending discussion with hospitalist about possible admission. Case was discussed with hospitalist who has agreed to admit the patient for comfort care measures until she is able to be set up with home hospice tomorrow. Vital Signs Vital signs: Vital Signs Temperature 97.4 F 10/21/22 16:50 Pulse Rate 72 10/21/22 16:50 Respiratory Rate 20 10/21/22 16:50 Blood Pressure 134/86 10/21/22 16:50 Pulse Oximetry (%) 91 10/21/22 16:50 Oxygen Delivery Method Room Air 10/21/22 16:50 Temperature 97.4 F 10/21/22 16:50 Pulse Rate 104 H 10/21/22 17:31 Respiratory Rate 20 10/21/22 16:50 Blood Pressure 80/55 10/21/22 17:31 Pulse Oximetry (%) 80 L 10/21/22 17:31 Oxygen Delivery Method Room Air 10/21/22 16:50 MDM MDM Narrative Medical decision making narrative: Narrative: Differential Diagnosis Differential Diagnosis: Comfort care Medical Records Medical records reviewed: Yes I reviewed the patient's medical records. Core Measures AMI Core Measures Followed: Yes Discharge Plan Patient/Caregiver Discharge Instructions Pt seen by MANAGER FRENCH/PA only: No Clinical Impression: Encounter for end of life care, Need for comfort care Patient Disposition: Xfer As Outpt/Obs ([facility]) Condition: Fair Follow up with: No,PCP [Primary Care Provider] - Prescriptions: No Action levothyroxine 137 mcg capsule 137 mcg PO QDAY liothyronine 5 MCG tablet 5 mcg PO BID metoprolol tartrate 50 MG tablet 50 mg PO BID Qty: 60 0RF apixaban 5 MG tablet 5 mg PO BID Qty: 60 0RF furosemide 20 MG tablet 20 mg PO DAILY Qty: 30 0RF ciprofloxacin HCl 500 MG tablet 500 mg PO BID Qty: 20 0RF tramadol 50 mg tablet 1 tab PO QIDP PRN (Reason: Pain)
--- NOTE | 2022-10-21 20:18 | Internal Med History&Physical ---
HPI History of Present Illness Patient information: Note initiated : 10/21/22 at 8:11 pm Service Date, if different from initiated Date: [] Patient: Rabia Godinez a 67 y/o F admitted on for uncomfortable. Chief Complaint: [] History of present illness: Ms. 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 In the ED, the patient received morphine and Ativan. Family does not feel comfortable taking the patient home and requested admission for comfort cares. The original plan was for the patient to start hospice cares at home tomorrow. Review of systems: Unable to obtain due to altered mental status Physical exam Head: Atraumatic, normal inspection. Eyes: normal appearance, no scleral icterus. Neck: full ROM Respiratory: Tachypnea, labored breathing Cardiovascular: Tachycardia, port in upper chest. GI/Abdominal: soft, nontender, no guarding. Abdi catheter present. Extremities: Bilateral pitting edema. PFSH PFSH All Active Problems (Updated 10/21/22 @ 19:28 by Osman Bob DO) Atrial fibrillation with rapid ventricular response (Acute) CHF (congestive heart failure) (Acute) Pleural effusion (Acute) Sarcoma (Acute) Cellulitis (Acute) COVID-19 (Acute) Acute dyspnea (Acute) Acute UTI (Acute) Acute anemia (Acute) Atrial fibrillation with rapid ventricular response (Acute) Sepsis (Acute) Chest wall sarcoma (Acute) Encounter for end of life care (Acute) Need for comfort care (Acute) Atrial fibrillation (Acute) Racing heart beat (Acute) History of rhabdomyosarcoma (Acute) History of breast cancer (Acute) Anxiety (Acute) Celiac disease (Acute) Hypothyroidism (Acute) Nelly's disease (Acute) Social History (Updated 01/20/18 @ 13:11 by Betty Montoya DO) smoking status: Never smoker alcohol intake frequency: a few times a week substance use type: does not use MEDS/ALLERGIES Home Medications and Allergies Home Medications Medication Instructions Recorded Confirmed Type levothyroxine 137 mcg capsule 137 mcg PO QDAY 01/20/18 01/20/18 History liothyronine 5 mcg tablet 5 mcg PO BID 01/20/18 01/20/18 History apixaban 5 mg tablet 5 mg PO BID #60 tabs 01/22/18 Rx furosemide 20 mg tablet 20 mg PO DAILY #30 tabs 01/22/18 Rx metoprolol tartrate 50 mg tablet 50 mg PO BID #60 tabs 01/22/18 Rx ciprofloxacin HCl 500 mg tablet 500 mg PO BID #20 tabs 08/20/19 Rx tramadol 50 mg tablet 1 tab PO QIDP PRN Pain 06/11/22 06/11/22 History Allergies Allergy/AdvReac Type Severity Reaction Status Date / Time meperidine [From Demerol] Allergy Intermediate Hives Verified 10/10/22 09:12 Penicillins Allergy Intermediate Hives Verified 10/10/22 09:12 EXAM Constitutional Vitals: Temp Pulse Resp BP Pulse Ox O2 Del Method 97.4 F 104 H 20 80/55 80 L Room Air 10/21/22 16:50 10/21/22 17:31 10/21/22 16:50 10/21/22 17:31 10/21/22 17:31 10/21/22 16:50 A/P Narrative A/P Narrative: Assessment: 67 year old Female with a 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 Time Spent With Patient Time: Total time spent is greater than 50% in coordination of care (as documented) at patient's floor/unit and/or counseling patient:
[2022-10-21] MEDS ORDERED: ALBUTEROL SULFATE 2.5 MG/3 ML NEBULIZER NEB PRN (21:23)
[2022-10-21] MEDS ORDERED: ATROPINE 1% OPHTH DROPS 2ML BOTTLE SL PRN (21:23)
[2022-10-21] MEDS ORDERED: ONDANSETRON 4 MG/2 ML VIAL IV PRN (21:23)
[2022-10-21] MEDS ORDERED: LORazepam 2 MG/ML VIAL IV PRN ×2 (21:23→22:15)
[2022-10-21] MEDS ORDERED: morphine 4 MG/ML VIAL ONE (21:58)
[2022-10-21] MEDS ORDERED: LORazepam 2 MG/ML VIAL ONE (22:00)
[2022-10-21] MEDS: morphine 4 MG/ML VIAL IV PRN (22:00)
[2022-10-21] MEDS ORDERED: 0.9 % SODIUM CHLORIDE 10 ML SYRINGE IV SCH ×2 (22:00)
[2022-10-22] MEDS: morphine 4 MG/ML VIAL IV PRN ×2 (01:52→07:52)
--- NOTE | 2022-10-22 11:40 | Death Note ---
Discharge Sum: Prov Provider Patient information: Note initiated : 10/22/22 at 11:38 am Service Date, if different from initiated Date: [] Patient: Rabia Godinez 67 y/o F admitted on 10/21/22 for uncomfortable-End of Life Care. Chief Complaint: [] Primary care physician: PCP No Consults: 10/21/22 Consult to Physician [CONS] Stat Comment: Consulting Provider: Michi Cohen Reason For Exam: Physician to Consult Discharge Sum: Summary Date and Time Date of admission: 10/21/22 21:17 Date of : 10/22/22 Time of : 09:30 Summary Details: Ms. 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 In the ED, the patient received morphine and Ativan. Family does not feel comfortable taking the patient home and requested admission for comfort cares. The original plan was for the patient to start hospice cares at home tomorrow. The patient was started on comfort cares at admission. She the next day, 10/22/2022 at 9:30 AM. Additional Data Attending physician: Michi Cohen MD
== END 2022-10-22 09:30 | disposition expired ==
LOC: MEDSUR 16:48 → ED 16:48 → MEDSUR 21:39
PROVIDERS: ADMIT Internal Medicine; ATTEND Internal Medicine